=== PATIENT | male | born 1980 | race Hispanic/Latino ===

== ENCOUNTER 2020-02-22 14:26 | Emergency (ER) | payer OTHER ==
--- NOTE | 2020-02-22 15:44 | CT ---
CT Lumbar Spine WO Con INDICATION: History of low back pain after fall COMPARISON: None. FINDINGS: Fracture: None. Spinal alignment: No acute malalignment. Lumbar spine degenerative change: There is mild SI joint degenerative change. There is mild multileve l disc degenerative disease most prominent at L4-5 and L5-S1. Visualized retroperitoneum and paraspinal soft tissues: There are mild vascular calcifications seen involving the visualized vasculature. No pathologically e nlarged lymph nodes are evident. IMPRESSION: No acute osseous abnormality.
== END 2020-02-22 18:07 | disposition home or self-care (01) ==
LOC: ERS 14:26
DX: S30.0XXA Contusion of lower back and pelvis, initial encounter (principal); E78.5 Hyperlipidemia, unspecified; E78.00 Pure hypercholesterolemia, unspecified; F17.210 Nicotine dependence, cigarettes, uncomplicated; Z79.899 Other long term (current) drug therapy; V85.5XXA Driver of special construction vehicle injured in nontraffic accident, initial encounter
CPT/HCPCS: 72131